=== PATIENT | female | born 1975 | race African-American/Black ===

== ENCOUNTER 2016-12-28 18:35 | Emergency (ER) | payer OTHER ==
[~2016-12-28] VITALS: Ht 157.5 cm; Wt 106.6 kg
--- NOTE | 2016-12-28 20:08 | PHYS DOC ---
Past Medical History Past Medical History: No Pertinent History Past Surgical History: Hysterectomy Alcohol Use: Rarely Drug Use: None Adult General Chief Complaint Chief Complaint: UPPER EXTREMITY PAIN HPI HPI Patient is a 41 year old female who presents emergency department complaint of right elbow pain for approximately 2 weeks after striking her elbow well. Patient denies any history of bone forming disorders. She denies any previous fractures, dislocations or surgeries to right elbow. Patient also complains of pain and swelling to her right middle finger for the past 3-4 days. Patient states that she had a hangnail which she pulled off. States she feels pain and then noticed redness and swelling to that area within the past 3-4 days. Review of Systems Review of Systems Constitutional: Denies fever or chills [] Eyes: Denies change in visual acuity, redness, or eye pain [] HENT: Denies nasal congestion or sore throat [] Respiratory: Denies cough or shortness of breath [] Cardiovascular: No additional information not addressed in HPI [] GI: Denies abdominal pain, nausea, vomiting, bloody stools or diarrhea [] : Denies dysuria or hematuria [] Musculoskeletal: Denies back pain or joint pain [] Integument: Denies rash or skin lesions [] Neurologic: Denies headache, focal weakness or sensory changes [] Endocrine: Denies polyuria or polydipsia [] Physical Exam Physical Exam Constitutional: Well developed, well nourished, no acute distress, non-toxic appearance. [] HENT: Normocephalic, atraumatic, bilateral external ears normal, oropharynx moist, no oral exudates, nose normal. [] Eyes: PERRLA, EOMI, conjunctiva normal, no discharge. [] Neck: Normal range of motion, no tenderness, supple, no stridor. [] Cardiovascular:Heart rate regular rhythm, no murmur [] Lungs & Thorax: Bilateral breath sounds clear to auscultation [] Abdomen: Bowel sounds normal, soft, no tenderness, no masses, no pulsatile masses. [] Skin: Warm, dry, no erythema, no rash. [] Back: No tenderness, no CVA tenderness. [] Extremities: Right elbow is normal in appearance. There is tenderness to palpation to the lateral aspect of the elbow near the lateral epicondyle. There is no palpable defect, deformity, instability or crepitus. There is no fusiform swelling or erythema. Patient demonstrates full active range of motion. Patient' s right middle finger with slight swelling on the cuticle. There is no fluctuant pocket. There is no gross erythema or swelling or induration suggestive of a felon or paronychia. Neurologic: Alert and oriented X 3, normal motor function, normal sensory function, no focal deficits noted. [] Psychologic: Affect normal, judgement normal, mood normal. [] EKG EKG [] Radiology/Procedures Radiology/Procedures 3 views of patient's right elbow were performed with adequate technique. There is no evidence of fracture, dislocation or pathologic soft tissue swelling Course & Med Decision Making Course & Med Decision Making Pertinent Labs and Imaging studies reviewed. (See chart for details) [] Dragon Disclaimer Dragon Disclaimer This electronic medical record was generated, in whole or in part, using a voice recognition dictation system. Departure Departure Impression: Primary Impression: Elbow contusion Additional Impression: Cellulitis Disposition: 01 HOME, SELF-CARE Condition: GOOD Referrals: DONN NEELY MD (PCP) Patient Instructions: Cellulitis, [id number], Elbow Contusion, [id number] Additional Instructions: 1. X-rays of your elbow today show no bony injury. 2. Review the discharge instructions provided for self-care and reasons to return the emergency department. 3. Take the medication as prescribed. 4. Follow-up with Dr. Neely within the next 5-7 days. Scripts Tramadol Hcl/Acetaminophen (Tramadol-Acetaminophn 37.5-325)1 Each Tablet1 Tab PO Q6H PAIN #10 TAB Ref 0 Prov:WESLEY PETE 12/28/16 Mupirocin (Mupirocin Ointment)22 Gm Oint...g.1 Zuleyma TP TID cellulitis #1 TUBE Prov:WESLEY PETE 12/28/16 Sulfamethoxazole/Trimethoprim (Bactrim Ds Tablet)1 Each Tablet1 Each PO BID #20 TAB Prov:WESLEY PETE 12/28/16 Problem Qualifiers Primary Impression: Elbow contusion Encounter type: initial encounter Laterality: right Qualified Code: S50.01XA - Contusion of right elbow, initial encounter Additional Impression: Cellulitis Site of cellulitis: extremity Site of cellulitis of extremity: finger Laterality: right Qualified Code: L03.011 - Cellulitis of right finger WESLEY PETE Dec 28, 2016 20:07
[2016-12-28] MEDS ORDERED: MUPI22OI2 TP (20:47)
[2016-12-28] MEDS ORDERED: SULF1TAB24 PO (20:47)
[2016-12-28] MEDS ORDERED: TRAM1TAB4 PO (20:47)
--- NOTE | 2016-12-29 08:46 | RAD ---
Right elbow, 3 views, 12/28/2016: History: Pain, injury No fracture or dislocation is identified. No significant joint effusion is seen. IMPRESSION: No acute right elbow abnormality is detected.
== END 2016-12-28 20:57 | disposition home or self-care (01) ==
LOC: ER 18:35
DX: S50.01XA Contusion of right elbow, initial encounter (principal); L03.011 Cellulitis of right finger; Z90.710 Acquired absence of both cervix and uterus; X58.XXXA Exposure to other specified factors, initial encounter; Y93.89 Activity, other specified; Y99.8 Other external cause status; Y92.89 Other specified places as the place of occurrence of the external cause
CPT/HCPCS: 73080; 99284

== ENCOUNTER → 2017-01-24 | Outpatient (CLI) | payer OTHER ==
[~2017-01-24] MED LIST: MUPI22OI2 TP; SULF1TAB24 PO; TRAM1TAB4 PO
--- NOTE | 2017-01-25 07:27 | RAD ---
Indication: Trauma and contusion to the right elbow. Time of exam 1705 hours. 3 views of the elbow demonstrate normal alignment. No fracture, dislocation or effusion is seen. Impression: No acute abnormality is detected.
== END | disposition home or self-care (01) ==
LOC: RAD 16:46
PROVIDERS: ATTEND Family Medicine
DX: S50.01XD Contusion of right elbow, subsequent encounter (principal); X58.XXXD Exposure to other specified factors, subsequent encounter
CPT/HCPCS: 73080

== ENCOUNTER → 2018-10-25 | Outpatient (CLI) | payer OTHER ==
--- NOTE | 2018-10-25 15:11 | KCIC ---
EXAM: Right hip and pelvis, 2 views; lumbar spine, 3 views. HISTORY: Pain. COMPARISON: None. FINDINGS: Pelvis and right hip: A frontal view the pelvis and frog-leg view the right hip are obtained. There is no fracture, dislocation or subluxation. There is a left os acetabulum. The femoral heads are normal in configuration. There are pelvic phleboliths. Lumbar spine: Frontal, lateral and coned sacral views of the lumbar spine are obtained. There is no listhesis. The vertebral bodies are normal in height and the disc spaces are preserved. There are cholecystectomy clips. IMPRESSION: No acute osseous finding. Electronically signed by: Bernadine Saavedra MD (10/25/2018 3:06 PM) [id number]
== END | disposition home or self-care (01) ==
LOC: KCIC 14:00
PROVIDERS: ATTEND Nurse Practitioner Gerontology
DX: M54.5 Low back pain (principal); M16.11 Unilateral primary osteoarthritis, right hip; I87.8 Other specified disorders of veins; Z90.49 Acquired absence of other specified parts of digestive tract
CPT/HCPCS: 72100; 73501

== ENCOUNTER → 2019-06-21 | Outpatient (CLI) | payer OTHER ==
--- NOTE | 2019-06-21 16:55 | KCIC ---
EXAM: Cervical spine, 6 views. HISTORY: Radiculopathy. COMPARISON: None. FINDINGS: 6 views of the cervical spine are obtained. There is cervical kyphosis centered at C3. There is no significant listhesis. There is degenerative endplate remodeling with anterior spurring at C3-C6. There is mild facet arthropathy at multiple levels. IMPRESSION: 1. Multilevel degenerative change. 2. No acute osseous finding. Electronically signed by: Bernadine Saavedra MD (06/21/2019 4:52 PM) [facility]
== END | disposition home or self-care (01) ==
LOC: KCIC 16:00
PROVIDERS: ATTEND Family Medicine
DX: M47.22 Other spondylosis with radiculopathy, cervical region (principal); M40.292 Other kyphosis, cervical region; M12.88 Other specific arthropathies, not elsewhere classified, other specified site; R20.0 Anesthesia of skin; R53.1 Weakness
CPT/HCPCS: 72050

== ENCOUNTER → 2021-10-05 | Outpatient (CLI) | payer OTHER ==
--- NOTE | 2021-10-05 17:27 | KCIC ---
Examination: 3 views of the right shoulder HISTORY: History of supraspinatus syndrome COMPARISON: None available FINDINGS: Humerus head is within the glenoid. There is mild joint space loss identified in the glenohumeral mandy nt, acromioclavicular joint likely degenerative changes. IMPRESSION: Mild degenerative changes glenohumeral joint, acromioclavicular joint. Electronically signed by: Yogesh Bosch MD (10/05/2021 5:25 PM) [id number]
== END ==
LOC: KCIC 11:46
PROVIDERS: ATTEND Family Medicine
DX: M19.011 Primary osteoarthritis, right shoulder (principal); M75.101 Unspecified rotator cuff tear or rupture of right shoulder, not specified as traumatic
CPT/HCPCS: 73030